=== PATIENT | female | born 1980 | race Caucasian/White ===

== ENCOUNTER 2016-06-22 06:53 | Emergency (ER) | payer BC ==
[~2016-06-22] VITALS: Ht 165.1 cm; Wt 72.6 kg
[2016-06-22 07:16] VITALS: BP 103/73
--- NOTE | 2016-06-22 07:29 | ED.ADGEN ---
Adult General Chief Complaint Chief Complaint Rash HPI HPI Patient is a 35-year-old female presents with diffuse urticarial rash over torso , extremities and lips. Rash started yesterday afternoon. Patient states rash is mildly tender. Patient denies fever, sore throat constitutional symptoms. Recently started new type medication 5 days ago. Denies any allergy exposures to new household products, detergents or foods. No medications or therapies trialed prior to ED arrival. Review of Systems Review of Systems ROS as per HPI. Current Medications Current Medications Current Medications Medications (Trade) Dose Ordered Sig/Deangelo Start Time Stop Time Status Last Admin Dose Admin Diphenhydramine HCl (Benadryl) 25 mg 1X ONCE 06/22/16 07:45 06/22/16 07:46 Famotidine (Pepcid) 20 mg 1X ONCE 06/22/16 07:45 06/22/16 07:46 Prednisone (Prednisone) 50 mg 1X ONCE 06/22/16 07:45 06/22/16 07:46 Allergies Allergies Allergies Coded Allergies Type Severity Reaction Last Updated Verified Sulfa (Sulfonamide Antibiotics) Allergy Intermediate 06/22/16 Yes Physical Exam Physical Exam Constitutional: Well developed, well nourished, no acute distress, non-toxic appearance. HENT: Normocephalic, atraumatic, bilateral external ears normal, oropharynx moist, swelling of outer lips, no oral pharyngeal swelling. Eyes: PERRLA, EOMI, conjunctiva normal. Neck: Normal range of motion, no tenderness, supple, no stridor. Cardiovascular:Heart rate regular rhythm, no murmur. Lungs & Thorax: Bilateral breath sounds clear to auscultation. Abdomen: Bowel sounds normal, soft, no tenderness. Skin: Mild diffuse urticaria involving torso and extremities. Back: No tenderness. Extremities: No tenderness. Neurologic: Alert and oriented X 3, normal motor function, normal sensory function, no focal deficits noted. Psychologic: Affect normal, judgement normal, mood normal. EKG EKG [] Radiology/Procedures Radiology/Procedures [] Impressions: Hives Course & Med Decision Making Course & Med Decision Making Pertinent Labs and Imaging studies reviewed. (See chart for details) [Steroids and antihistamines given. ] Final Impression Final Impression [1. Urticaria] Problems: Dragon Disclaimer Dragon Disclaimer This electronic medical record was generated, in whole or in part, using a voice recognition dictation system. JO-ANN CORDOBA DO Jun 22, 2016 07:29
[2016-06-22] MEDS: DIPHENHYDRAMINE HCL 25 MG CAPSULE PO ONE (07:31)
[2016-06-22] MEDS: FAMOTIDINE 20 MG TABLET PO ONE (07:33)
[2016-06-22] MEDS: PREDNISONE 20 MG TABLET PO ONE (07:33)
== END 2016-06-22 07:42 | disposition home or self-care (01) ==
LOC: ER 06:53
DX: L50.9 Urticaria, unspecified (principal); Z88.2 Allergy status to sulfonamides
CPT/HCPCS: 99284; J7512; Q0163